=== PATIENT | male | born 1995 | race Two or more races ===

== ENCOUNTER 2024-01-23 12:07 | Emergency (ER) | payer SELFPAY ==
[~2024-01-23] VITALS: Ht 175.3 cm; Wt 92.0 kg
[2024-01-23 12:11] VITALS: BP 122/78; PULSE 70; RESP 20; TEMP 98.2; O2SAT 98
== END 2024-01-23 14:01 | disposition left against medical advice (07) ==
LOC: ER 12:07
DX: S40.812A Abrasion of left upper arm, initial encounter (principal); V87.8XXA Person injured in other specified noncollision transport accidents involving motor vehicle (traffic), initial encounter; Y93.89 Activity, other specified; Y92.89 Other specified places as the place of occurrence of the external cause; Y99.8 Other external cause status
CPT/HCPCS: 99283